=== PATIENT | female | born 1975 | race African-American/Black ===

== ENCOUNTER 2021-05-04 17:16 | Outpatient (CLI) | payer BC, SELFPAY ==
--- NOTE | ~2021-05-04 | MM_ITS ---
EXAMINATION: MM screening [facility] BI w muriel HISTORY: Screening TECHNIQUE: Craniocaudal and mediolateral oblique 3-D tomosynthesis images were obtained and synthetic 2-D images were generated. CAD analysis was submitted and interpreted. COMPARISON: No prior mammogram is available for comparison at this institution. BREAST PARENCHYMAL COMPOSITION: There are scattered areas of fibroglandular density. FINDINGS: There is a mass in the upper outer quadrant of the left breast, middle third. There are no suspicious calcifications, in the right breast to suggest malignancy. IMPRESSION: 1. Left breast mass, upper outer quadrant. 2. Comparison to previous outside mammograms recommended. BI-RADS Category 0: Incomplete: Needs additional imaging evaluation. Reviewed, dictated and finalized at location A.
== END 2021-05-04 17:17 | disposition home or self-care (01) ==
LOC: ANHIMG 17:25
DX: Z12.31 Encounter for screening mammogram for malignant neoplasm of breast (principal); R92.8 Other abnormal and inconclusive findings on diagnostic imaging of breast
CPT/HCPCS: 77063; 77067

== ENCOUNTER 2022-07-13 16:17 | Outpatient (CLI) | payer BC, SELFPAY ==
--- NOTE | ~2022-07-13 | MM_ITS ---
EXAMINATION: MM screening [facility] BI w muriel HISTORY: Screening TECHNIQUE: Craniocaudal and mediolateral oblique 3-D tomosynthesis images were obtained and synthetic 2-D images were generated. CAD analysis was submitted and interpreted. COMPARISON: Comparison to multiple prior studies sequentially, with oldest reviewed study dated 02/2020. BREAST PARENCHYMAL COMPOSITION: Breast composed of scattered areas of fibroglandular density FINDINGS: There is no evidence of suspicious mass, calcification, or architectural distortion to sugg est malignancy in either breast. There has been no suspicious interval change. IMPRESSION: 1. No mammographic evidence of malignancy. 2. Recommend routine screening mammography in one year. BI-RADS Category 1: Negative Reviewed, dictated and finalized at location A.
== END 2022-07-13 16:18 | disposition home or self-care (01) ==
LOC: ANHIMG 16:24
DX: Z12.31 Encounter for screening mammogram for malignant neoplasm of breast (principal)
CPT/HCPCS: 77063; 77067

== ENCOUNTER 2023-07-17 15:25 | Outpatient (CLI) | payer BC, SELFPAY ==
--- NOTE | ~2023-07-17 | MM_ITS ---
EXAMINATION: MM screening [facility] w muriel HISTORY: Screening mammogram TECHNIQUE: Craniocaudal and mediolateral oblique 3-D tomosynthesis images were obtained and synthetic 2-D images were generated. CAD analysis was submitted and interpreted. COMPARISON: 07/13/2022, 05/04/2021 bilateral screening mammogram examinations BREAST PARENCHYMAL COMPOSITION: There are scattered areas of fibroglandular density. FINDINGS: There is no evidence of suspicious mass, calcification, or architectural distortion to sugg est malignancy in either breast. There has been no suspicious interval change. IMPRESSION: 1. No mammographic evidence of malignancy. 2. Recommend routine screening mammography in one year. BI-RADS Category 1: Negative Reviewed, dictated and finalized at location A.
== END 2023-07-17 15:26 | disposition home or self-care (01) ==
LOC: ANHIMG 15:46
DX: Z12.31 Encounter for screening mammogram for malignant neoplasm of breast (principal)
CPT/HCPCS: 77063; 77067

== ENCOUNTER 2024-07-19 15:25 | Outpatient (CLI) | payer BC, SELFPAY ==
--- NOTE | ~2024-07-19 | MM_ITS ---
EXAMINATION: MM screening [facility] w muriel HISTORY: Screening TECHNIQUE: Craniocaudal and mediolateral oblique 3-D tomosynthesis images were obtained and synthetic 2-D images were generated. CAD analysis was submitted and interpreted. COMPARISON: Comparison to multiple prior studies sequentially, with oldest reviewed study dated 02/2020. BREAST PARENCHYMAL COMPOSITION: Not dense: There are scattered areas of fibroglandular density. FINDINGS: There is no evidence of suspicious mass, calcification, or architectural distortion to sugg est malignancy in either breast. There has been no suspicious interval change. IMPRESSION: 1. No mammographic evidence of malignancy. 2. Recommend routine screening mammography in one year. BI-RADS Category 1: Negative Reviewed, dictated and finalized at location B.
== END 2024-07-19 15:26 | disposition home or self-care (01) ==
LOC: ANHIMG 15:28
DX: Z12.31 Encounter for screening mammogram for malignant neoplasm of breast (principal)
CPT/HCPCS: 77063; 77067

== ENCOUNTER 2025-06-02 18:35 | Emergency (ER) | payer BC, SELFPAY ==
--- OUTSIDE RECORDS SUMMARY | 2017-08-25 13:16 | XMS_ITS | Continuity of Care Document ---
Author Organization [facility] Address [address] [place] [address] Phone Care Team Providers Care Fashion Consultant Sales Name Role Phone Jean-Pierre Newton MD Unavailable Unavailable Allergies, Adverse Reactions, Alerts Substance Reaction Status Criticality No Known Allergies Active No Inform ation Medications Medication Instructions Dosage Effective Dates (start - stop) Status Comments [place] 5 mg-325 mg tablet take 1- 2 table ts by oral route every 6 hours as needed for pain - Active OMEPRAZOLE (unknown strength) Not Available - Active VALTREX (unknown strength) Not Available - Active NUVARING (unknown strength) Not Available - Active LORATADINE (unknown strength) Not Available - Active HYDROCHLOROTHIAZIDE (unknown strength) Not Available - Active Procedures Procedure Date POSTOP FOLLOW-UP VISIT POSTOP FOLLOW-UP VISIT OFFICE/OUTPATIENT VISIT EST Advance Directives Directive Yes / No Effective Date File Name No Information Encounters Encounter Description Practice Location Reason(s) For Visit Diagnoses Date Provider Providers Copied on Encounter [facility] , [address], [address], [place] [phone] [facility] No Information 7 Aman [address]. [address], [id number] . tel: [phone] [facility] , [address], [address], [place] [phone] [facility] Trigger finger of right thumb 5 Drea Galvin. [address] [facility] [place], [place], [id number] . tel: [phone] [facility] , [address], [address], tel:[phone] [facility] Trigger finger of right thumb 5 Drea Galvin. [address] [facility], [place], [place], [id number] . tel: [phone] [facility] , [address] [place] [address], [address], tel:[phone] [facility] No Information - 5 Drea Galvin. [address] [facility], [place], [place], [id number] . tel: [phone] [facility] , [address], [address], tel:[phone] [facility] [place] Trigger finger of right thumb 0 5 Drea Galvin. [address] [facility], [place], [place], [id number] . tel: [phone] OFFICE/OUTPAT IENT VISIT EST [facility] , [address] [place] [address], [place], [address], tel:[phone] [facility] Trigger finger (acquired) 5 Drea Galvin. [address] [facility], [place], [place], [id number] . tel: [phone] Referring Provider: Melissa Lopez[address], [place], [address]. tel:[phone] Family History Family Member Type Diagnosis Age At Onset Problem (finding) Family history of strok e Problem (finding) Family history of hyper tension Mother Problem (finding) malignant neoplasm of [place] Problem (finding) Family history of Diabe louann mellitus Problem (finding) Family history of prost ate cancer Payers Payer name Insurance type Covered constitution party ID Authoriza tion(s) Prime E2 [id number] Social History Type Description Quantity Date Captured Comments Sex Female Smoking Status No Information Chief Complaint And Reason For Visit No Information Reason For Referral Reason For Referral No Information History Of Present Illness Encounter Date Complaint History Of Prese nt Illness No Information Functional Status Date Functional Assessmen t No Information Instructions Date Instruction Additional Infor mation Activity as tolerated. Related t o Trigger finger of right thumb Activity as tolerated. Related t o Trigger finger of right thumb Discussed post-operative instruc tions Related to Trigger finger of right thumb Activity as tolerated. Related t o Trigger finger (acquired) Assessments Type Assessment Date No Information Patient Care Teams Name Effective Dates (start - stop) Status Members No Information
--- OUTSIDE RECORDS SUMMARY | 2025-06-02 18:37 | XMS_ITS | Clinical Summary ---
Author Organization [facility] [employer] Address [address] [place] [address] Care Team Providers Care Operations Officer Trust Department Name Role Phone Sri Hester MD Primary Care Provider [phone] Source Comments [facility],non-owned Affiliates and Associated Physician Practices is amultiple site organization consisting of ambulatory clinics and hospital sitesin [place], [place], [place] and [place]. This disclosure is being madepursuant to the Care Everywhere program and may not contain all information available regarding this patient. Last updated 18.[facility] [employer] Allergies Active Allergy Reactions Criticality Noted Date Comments Acetaminophen 08/16/2011 Medications * Be aware that medications may not be up to date on this document. Alwaysverify current medications with the patient. valACYclovir (VALTREX) 1 GM tablet Take 1,000 mg by mouth every 12 hours. Active Etonogestrel-Eth inyl Estradiol (NUVARING VA) Insert into the vagina. Active Family History Medical History Relation Name Comments Cancer Father prostate Relation Name Status Comments Father Social History Tobacco Use Types Packs/Day Years Used Date Smoking Tobacco: Never Alcohol Use Standard Drinks/Week Comments Not Asked 0 (1 standard drink = 0.6 oz pur e alcohol) Comments Unknown Sex and Gender Information Value Date Recorded Sex Assigned at Not on file Legal Sex Female 12:50 PM [employer]ALONE DIVER Gender Identity Not on file Sexual Orientation Not on file Last Filed Vital Signs Vital Sign Reading Time Taken Comments Blood Pressure 120/90 08/16/2011 2:12 PM ABALONE DIVER Pulse 74 08/16/2011 2:12 PM ABALONE DIVER Temperature - - Respiratory Rate - - Oxygen Saturation 98% 08/16/2011 2:12 PM ABALONE DIVER Inhaled Oxygen Concentration - - Weight 98.9 kg (218 lb) 08/16/2011 2:12 PM ABALONE DIVER Height 162.6 cm (5' 4) 08/16/2011 2:12 PM ABALONE DIVER Body Mass Index 37.42 08/16/2011 2:12 PM ABALONE DIVER Plan of Treatment Health Maintenance Due Date Last Done Comments COLOGUARD (AGES 45-75) - COL ON CA SCREENING 1976 COLON MONITORING 1976 COLONOSCOPY - COLON CA SCREENING 1976 CT COLONOGRAPHY - COLON CA SCREENING 1976 Colorectal Cancer Screening 1976 FIT - COLON CA SCREENING 1976 FLEX SIG - COLON CA SCREENING 1976 LIPID TESTING 1976 MAMMOGRAM 1976 HIV SCREENING 1991 HEPATITIS C SCREENING 04/14/1994 DTAP/TDAP/TD VACCINES (1 - Tdap) 1995 HEPATITIS B VACCINE (1 of 3 - 19+ 3-dose series) 1995 DEPRESSION SCREENING 09/25/2024 COVID-19 VACCINE (1 - 2023-2 5 season) 2025 INFLUENZA VACCINE (#1) 2025 ZOSTER VACCINE (1 of 2) 2026 HIB VACCINE Aged Out No longer eligi ble based on patient's age to complete this topic HPV VACCINE Aged Out No longer eligi ble based on patient's age to complete this topic MENINGOCOCCAL (Group B) VACC INE SHARED DECISION-MAKING Aged Out No longer eligibl e based on patient's age to complete this topic MENINGOCOCCAL GROUPS A/C/Y/W VACCINE Aged Out No longer eligible b ased on patient's age to complete this topic Insurance Care Teams Operations Officer Trust Department Relationship Specialty Start Date End Date Sri Hester MD [address] [place] [address] CYNDIE Nichols [id number] PCP - General 08/23/11
--- OUTSIDE RECORDS SUMMARY | 2025-06-02 18:37 | XMS_ITS | Clinical Summary ---
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 Role Phone No, Physician Primary Care Provider [phone] Allergies No known active allergies Medications valACYclovir (VALTREX) 500 mg tablet TAKE 1 TABLET BY MOUTH EVERY DAY 90 tablet 12/30/2019 Active etonogestreL-et hinyl estradioL (NUVARING, ELURYNG) 0.12-0.015 mg/24 hr vaginal ring Insert into the vagina Active cetirizine (ZyrTEC) 10 mg tablet Take 1 tablet (10 mg total) by mouth daily Active montelukast (SINGULAIR) 10 mg tablet Take 1 tablet (10 mg total) by mouth daily 06/30/2018 Active multivitamin-mi g-[id number]-vit K (Bariatric Multivitamins) 45 mg iron- 800 mcg-120 mcg capsule 12/05/2023 Active pimecrolimus (Elidel) 1 % cream PRN Active buPROPion SR (WELLBUTRIN SR) 200 mg 12 hr tabletIndicatio ns:Obesity, class 3 Take 1 tablet (200 mg total) by mouth 2 (two) times a day 180 tablet 1 12/03/2024 Active topiramate (TOPAMAX) 25 mg tabletIndicatio ns:Obesity, class 3 Take 1 tablet (25 mg total) by mouth 3 (three) times a day 90 tablet 3 12/03/2024 Active ergocalciferol (VITAMIN D) 50,000 unit capsule Take 1 capsule (50,000 Units total) by mouth once a week 4 capsule 2 02/14/2025 Active phentermine 15 mg capsuleIndicati ons:Obesity, class 3 Take 1 capsule (15 mg total) by mouth 2 (two) times a day 60 capsule 2 03/31/2025 Active naltrexone (DEPADE) 50 mg tabletIndicatio ns:Obesity, class 3 Take 1 tablet (50 mg total) by mouth daily 90 tablet 1 12/03/2024 06/01/20 25 Active Problems Problem Noted Date Diagnosed Date Vitamin B 12 deficiency 04/15/2025 Assessment & Plan (04/15/2025 3:35 PM CDT): Vitamin B12 level 259 Please add in over the counter strength Vitamin B12 - 2,500 mcg daily. Obesity, class 3 09/30/2024 Assessment & Plan (04/15/2025 3:39 PM CDT): Reviewed most recent labs. Continue low carb, low glycemic diet. Rissa is currently on bupropion/naltrexone and phentermine/topiramate. Continue medication at current dose. Stop phentermine 1 week before surgery and can restart the day after if feeling well Stop naltrexone 1 month before surgery- hold until next visit after surgery Stop wellbutrin and topamax the day before surgery and restart the day afterwards if feeling well increase physical activity, water, and protein (eat protein first, veggies, fruits, starchy veggies, legumes, grains) Increase to 60-80+ fl oz daily Increase protein intake to 70-90g daily Try to increase intentional physical activity and add in some strength training (weights, resistance bands, yoga, pilates) Reviewed importance of adequate protein intake. Reviewed recommendation/goal of >/= 150 minutes/week moderate intensity aerobic exercise. Assessment & Plan (02/11/2025 3:02 PM CDT): Continue low carb, low glycemic diet. Rissa is currently on bupropion/naltrexone and phentermine/topiramate. Continue medication at current dose. May consider increasing phentermine in the future if no continued improvement, would need to watch BP. increase physical activity, water, and protein (eat protein first, veggies, fruits, starchy veggies, legumes, grains) Increase to 60-80+ fl oz daily Increase protein intake to 70-90g daily Try to increase intentional physical activity and add in some strength training (weights, resistance bands, yoga, pilates) Reviewed importance of adequate protein intake. Reviewed recommendation/goal of >/= 150 minutes/week moderate intensity aerobic exercise. Assessment & Plan (12/03/2024 8:17 AM CDT): Obesity is one of the leading risk factor for mortality. Metabolically healthy obese individuals had 49% increased risk of coronary artery disease, 7% increased risk of cerebrovascular disease and 96% increased risk of heart failure. In other words, even individuals who are normal weight can have metabolic abnormalities and similar risk for cardiac vascular disease events. Thus, the complications that may result from metabolic syndrome and frequently serious and chronic. They include atherosclerosis, diabetes, myocardial infarction, renal disease, cardiovascular events such as stroke, nonalcoholic fatty liver disease, peripheral artery disease, and cardiovascular diseases. His diabetes develops; there is an increased risk of retinopathy, neuropathy, renal disease and amputation of labs. Therefore, treating obesity, obesity related diseases is exceedingly crucial. Improving the hypertrophic adipocytes function and decrease insulin resistance is the main goal of the treatment. Furthermore, an emerging concept that the anti-obesity agents must not only reduce the hypertrophic adipocytes but must also correct the fat dysfunction, adiposopathy. Weight loss is associated with increases in mean suppression of glucose production from baseline, is associated with increase insulin stimulated in glucose disposal from fat-free mass and weight loss increased beta cell function. In other words, weight loss change in hepatic insulin sensitivity and muscle insulin sensitivity, beta cell function and a 24-hour plasma glucose and insulin profiles. Our goal is and decreasing the weight between 16 and 20% which will significantly decrease the risk of morbidity and mortality. Assessment & Plan (09/30/2024 8:47 AM FILM COMPOSER): Continue low carb, low glycemic diet. Rissa is currently on bupropion/naltrexone and phentermine/topiramate. Continue medication at current dose. If she continues to have hair loss despite not losing much weight between visits, increasing protein and starting the nutrofol and minoxidil from dermatology, will discuss lowering Topamax dose next visit increase physical activity, water, and protein (eat protein first, veggies, fruits, starchy veggies, legumes, grains) Increase to 60-80+ fl oz daily Increase protein intake to 70-90g daily Try to increase intentional physical activity and add in some strength training Reviewed importance of adequate protein intake. Reviewed recommendation/goal of >/= 150 minutes/week moderate intensity aerobic exercise. BMI 40.0-44.9, adult 09/30/2024 Assessment & Plan (04/15/2025 3:14 PM CDT): Patient's highest BMI was 43.7 ; initial BMI was 30.4; this has improved to 26.93 through medical management Assessment & Plan (02/11/2025 2:38 PM CDT): Patient's highest BMI was 43.7 ; initial BMI was 30.4; this has improved to 26.43 through medical management Assessment & Plan (09/30/2024 8:28 AM FILM COMPOSER): Patient's highest BMI was 43.7 ; initial BMI was 30.4; this has improved to 26.29 through medical management Encounter for exercise counseling 09/30/2024 Assessment & Plan (04/15/2025 11:33 AM CDT): I counseled the patient on exercise: Recommend 36 min. cardio daily. Based on availiable data on the secondary prevention of coronary heart disease, stroke and prediabetes, physical activity is potentially as active as many drug interventions.Jose Antonio Ramirez: BMJ 2013 [id number];06/2013; Diabetes Care, Volume 35, Aug 2012. Reviewed recommendation/goal of >/= 150 minutes/week moderate intensity aerobic exercise. Discussed need for weightbearing exercise in order to promote muscle gain and burning fat. Assessment & Plan (02/11/2025 9:30 AM CDT): I counseled the patient on exercise: Recommend 36 min. cardio daily. Based on availiable data on the secondary prevention of coronary heart disease, stroke and prediabetes, physical activity is potentially as active as many drug interventions.NacJose Antonio mcneil: BM 2012 [id number];06/2013; Diabetes Care, Volume 35, Aug 2012. Reviewed recommendation/goal of >/= 150 minutes/week moderate intensity aerobic exercise. Discussed need for weightbearing exercise in order to promote muscle gain and burning fat. Assessment & Plan (09/30/2024 8:28 AM FILM COMPOSER): I counseled the patient on exercise: Recommend 36 min. cardio daily. Based on availiable data on the secondary prevention of coronary heart disease, stroke and prediabetes, physical activity is potentially as active as many drug interventions.Jose Antonio Ramirez: BM 2012 [id number];06/2013; Diabetes Care, Volume 35, Aug 2012. Reviewed recommendation/goal of >/= 150 minutes/week moderate intensity aerobic exercise. Discussed need for weightbearing exercise in order to promote muscle gain and burning fat. H/O bariatric surgery 09/30/2024 Assessment & Plan (04/15/2025 11:33 AM CDT): S/P sleeve gastrectomy. Reviewed recent labs Pt brunson start taking Calcium citrate 1,200mcg daily with food Assessment & Plan (02/11/2025 9:30 AM CDT): S/P sleeve gastrectomy. Routine labs to evaluate for vitamin deficiencies in setting of intestinal malabsorption. Will recheck labs after PCP appt tomorrow and add on additional lab orders Assessment & Plan (12/03/2024 8:18 AM CDT): Pt has hx of lap band placed at age 39, removed at age 44. She is s/p VSG w/ Dr. Mclaughlin at age 44. Assessment & Plan (09/30/2024 8:43 AM FILM COMPOSER): S/P sleeve gastrectomy. Routine labs to evaluate for vitamin deficiencies in setting of intestinal malabsorption. Will recheck labs after PCP appt tomorrow and add on additional lab orders Encounter for weight loss counseling 04/23/2024 Assessment & Plan (04/15/2025 11:33 AM CDT): Reviewed importance of adequate protein intake. Reviewed recommendation/goal of >/= 150 minutes/week moderate intensity aerobic exercise. Discussed okay to not track food/calories but that if they start to struggle or are not losing weight, this is a useful tool to help refocus. Discussed limiting calorie intake with restaurant options including planning meals prior to ordering, eating only half the meal, and substituting certain items. Assessment & Plan (02/11/2025 9:30 AM CDT): Reviewed importance of adequate protein intake. Reviewed recommendation/goal of >/= 150 minutes/week moderate intensity aerobic exercise. Discussed okay to not track food/calories but that if they start to struggle or are not losing weight, this is a useful tool to help refocus. Discussed limiting calorie intake with restaurant options including planning meals prior to ordering, eating only half the meal, and substituting certain items. Assessment & Plan (12/03/2024 8:17 AM CDT): Relevant weight management chart notes reviewed. I counseled the patient on nutrition: Implementing First Line therapy was discussed. Furthermore, we recommend a diet with a slightly higher high protein content, lower glycemic index with carbohydrate restriction yet without daily energy restriction. This approach will need to a weight loss because of higher satiety sensation. Recommend avoiding food persevered in plastic, eating out or processed food. Avoid eating out and ultraprocessed foods. Recommend fresh/frozen protein and vegetables. Study YES and NO list. I counseled the patient on exercise: Recommend 36 min. cardio daily. Based on availiable data on the secondary prevention of coronary heart disease, stroke and prediabetes, physical activity is potentially as active as many drug interventions.Jose Antonio Ramirez: BMJ 2013 [id number];06/2013; Diabetes Care, Volume 35, Aug 2012. Pharmacotherapy: Reviewed medications; discussed with the patient changes in details, discussed side effects and risks of taking the medications in details with the patient. Patient expressed understanding of the new orders; see attached new treatment and orders. - Topamax 25mg BID - Phentermine 15mg BID - Wellbutrin SR 200mg BID - Bariatric MVI - Naltrexone 50mg - 1/2 tab BID --> has been out, [facility] Assessment & Plan (09/30/2024 8:27 AM FILM COMPOSER): Reviewed importance of adequate protein intake. Reviewed recommendation/goal of >/= 150 minutes/week moderate intensity aerobic exercise. Discussed okay to not track food/calories but that if they start to struggle or are not losing weight, this is a useful tool to help refocus. Discussed limiting calorie intake with restaurant options including planning meals prior to ordering, eating only half the meal, and substituting certain items. Assessment & Plan (07/30/2024 3:00 PM FILM COMPOSER): Reviewed importance of adequate protein intake. Reviewed recommendation/goal of >/= 150 minutes/week moderate intensity aerobic exercise. Discussed okay to not track food/calories but that if they start to struggle or are not losing weight, this is a useful tool to help refocus. Discussed limiting calorie intake with restaurant options including planning meals prior to ordering, eating only half the meal, and substituting certain items. Assessment & Plan (04/23/2024 2:35 PM CDT): Reviewed importance of adequate protein intake. Reviewed recommendation/goal of >/= 150 minutes/week moderate intensity aerobic exercise. Discussed limiting calorie intake with restaurant options including planning meals prior to ordering, eating only half the meal, and substituting certain items. Metabolic syndrome 04/23/2024 Assessment & Plan (04/15/2025 11:33 AM CDT): Obesity is one of the leading risk factor for mortality. Metabolically healthy obese individuals had 49% increased risk of coronary artery disease, 7% increased risk of cerebrovascular disease and 96% increased risk of heart failure. In other words, even individuals who are normal weight can have metabolic abnormalities and similar risk for cardiac vascular disease events. Thus, the complications that may result from metabolic syndrome and frequently serious and chronic. They include atherosclerosis, diabetes, myocardial infarction, renal disease, cardiovascular events such as stroke, nonalcoholic fatty liver disease, peripheral artery disease, and cardiovascular diseases. His diabetes develops; there is an increased risk of retinopathy, neuropathy, renal disease and amputation of limbs. Therefore, treating obesity, obesity related diseases is exceedingly crucial. Improving the hypertrophic adipocytes function and decrease insulin resistance is the main goal of the treatment. Furthermore, an emerging concept that the anti-obesity agents must not only reduce the hypertrophic adipocytes but must also correct the fat dysfunction, adiposopathy. Weight loss is associated with increases in mean suppression of glucose production from baseline, is associated with increase insulin stimulated in glucose disposal from fat-free mass and weight loss increased beta cell function. In other words, weight loss change in hepatic insulin sensitivity and muscle insulin sensitivity, beta cell function and a 24-hour plasma glucose and insulin profiles. Our goal is and decreasing the weight between 16 and 20% which will significantly decrease the risk of morbidity and mortality. Assessment & Plan (02/11/2025 9:30 AM CDT): Obesity is one of the leading risk factor for mortality. Metabolically healthy obese individuals had 49% increased risk of coronary artery disease, 7% increased risk of cerebrovascular disease and 96% increased risk of heart failure. In other words, even individuals who are normal weight can have metabolic abnormalities and similar risk for cardiac vascular disease events. Thus, the complications that may result from metabolic syndrome and frequently serious and chronic. They include atherosclerosis, diabetes, myocardial infarction, renal disease, cardiovascular events such as stroke, nonalcoholic fatty liver disease, peripheral artery disease, and cardiovascular diseases. His diabetes develops; there is an increased risk of retinopathy, neuropathy, renal disease and amputation of limbs. Therefore, treating obesity, obesity related diseases is exceedingly crucial. Improving the hypertrophic adipocytes function and decrease insulin resistance is the main goal of the treatment. Furthermore, an emerging concept that the anti-obesity agents must not only reduce the hypertrophic adipocytes but must also correct the fat dysfunction, adiposopathy. Weight loss is associated with increases in mean suppression of glucose production from baseline, is associated with increase insulin stimulated in glucose disposal from fat-free mass and weight loss increased beta cell function. In other words, weight loss change in hepatic insulin sensitivity and muscle insulin sensitivity, beta cell function and a 24-hour plasma glucose and insulin profiles. Our goal is and decreasing the weight between 16 and 20% which will significantly decrease the risk of morbidity and mortality. Assessment & Plan (09/30/2024 8:27 AM FILM COMPOSER): Obesity is one of the leading risk factor for mortality. Metabolically healthy obese individuals had 49% increased risk of coronary artery disease, 7% increased risk of cerebrovascular disease and 96% increased risk of heart failure. In other words, even individuals who are normal weight can have metabolic abnormalities and similar risk for cardiac vascular disease events. Thus, the complications that may result from metabolic syndrome and frequently serious and chronic. They include atherosclerosis, diabetes, myocardial infarction, renal disease, cardiovascular events such as stroke, nonalcoholic fatty liver disease, peripheral artery disease, and cardiovascular diseases. His diabetes develops; there is an increased risk of retinopathy, neuropathy, renal disease and amputation of labs. Therefore, treating obesity, obesity related diseases is exceedingly crucial. Improving the hypertrophic adipocytes function and decrease insulin resistance is the main goal of the treatment. Furthermore, an emerging concept that the anti-obesity agents must not only reduce the hypertrophic adipocytes but must also correct the fat dysfunction, adiposopathy. Weight loss is associated with increases in mean suppression of glucose production from baseline, is associated with increase insulin stimulated in glucose disposal from fat-free mass and weight loss increased beta cell function. In other words, weight loss change in hepatic insulin sensitivity and muscle insulin sensitivity, beta cell function and a 24-hour plasma glucose and insulin profiles. Our goal is and decreasing the weight between 16 and 20% which will significantly decrease the risk of morbidity and mortality. Assessment & Plan (07/30/2024 3:00 PM FILM COMPOSER): Obesity is one of the leading risk factor for mortality. Metabolically healthy obese individuals had 49% increased risk of coronary artery disease, 7% increased risk of cerebrovascular disease and 96% increased risk of heart failure. In other words, even individuals who are normal weight can have metabolic abnormalities and similar risk for cardiac vascular disease events. Thus, the complications that may result from metabolic syndrome and frequently serious and chronic. They include atherosclerosis, diabetes, myocardial infarction, renal disease, cardiovascular events such as stroke, nonalcoholic fatty liver disease, peripheral artery disease, and cardiovascular diseases. His diabetes develops; there is an increased risk of retinopathy, neuropathy, renal disease and amputation of labs. Therefore, treating obesity, obesity related diseases is exceedingly crucial. Improving the hypertrophic adipocytes function and decrease insulin resistance is the main goal of the treatment. Furthermore, an emerging concept that the anti-obesity agents must not only reduce the hypertrophic adipocytes but must also correct the fat dysfunction, adiposopathy. Weight loss is associated with increases in mean suppression of glucose production from baseline, is associated with increase insulin stimulated in glucose disposal from fat-free mass and weight loss increased beta cell function. In other words, weight loss change in hepatic insulin sensitivity and muscle insulin sensitivity, beta cell function and a 24-hour plasma glucose and insulin profiles. Our goal is and decreasing the weight between 16 and 20% which will significantly decrease the risk of morbidity and mortality. Assessment & Plan (04/23/2024 2:36 PM CDT): Continue low carb, low glycemic diet. Rissa is currently on bupropion/naltrexone and phentermine/topiramate. Increase Topamax- con't 1 tab with each phentermine and add additional tab at 6PM Continue medication at current dose. Reviewed importance of adequate protein intake. Reviewed recommendation/goal of >/= 150 minutes/week moderate intensity aerobic exercise. Discussed limiting calorie intake with restaurant options including planning meals prior to ordering, eating only half the meal, and substituting certain items. increase physical activity, water, and protein (eat protein first, veggies, fruits, starchy veggies, legumes, grains) Pure hypercholesterolemia 09/27/2022 Assessment & Plan (04/15/2025 11:29 AM CDT): Discussed role of diet, exercise and weight loss in improving lipid profile. Increasing physical activity can increase HDL, often referred as good cholesterol which is protective. losing 5-10% body weight can result in reduction of LDL. Assessment & Plan (02/11/2025 9:32 AM CDT): Discussed role of diet, exercise and weight loss in improving lipid profile. Increasing physical activity can increase HDL, often referred as good cholesterol which is protective. losing 5-10% body weight can result in reduction of LDL. Assessment & Plan (09/30/2024 8:26 AM FILM COMPOSER): Discussed role of diet, exercise and weight loss in improving lipid profile. Assessment & Plan (07/30/2024 3:29 PM FILM COMPOSER): Discussed role of diet, exercise and weight loss in improving lipid profile. Assessment & Plan (04/23/2024 2:37 PM CDT): Discussed role of diet, exercise and weight loss in improving lipid profile. Gastric band malfunction 09/21/2020 Allergic rhinitis 07/09/2018 Essential (primary) hypertension 07/09/2018 Assessment & Plan (04/15/2025 3:45 PM CDT): Blood pressure readings reviewed. Reviewed medications, medication side effects discussed, call with any medical questions, monitor her blood pressure on regular basis, record blood pressure readings and heart rate. Call if systolic blood pressure exceeds 130 mmHg. Weight loss will decrease the blood pressure. By decreasing systolic and diastolic blood pressure, antihypertensive medications can be weaned off. Check BP 3-4x/week- If BP >140/90 consistently then reach out to PCP We can also decrease phentermine, naltrexone, and wellbutrin Assessment & Plan (02/11/2025 9:32 AM CDT): Blood pressure readings reviewed. Reviewed medications, medication side effects discussed, call with any medical questions, monitor her blood pressure on regular basis, record blood pressure readings and heart rate. Call if systolic blood pressure exceeds 130 mmHg. Weight loss will decrease the blood pressure. By decreasing systolic and diastolic blood pressure, antihypertensive medications can be weaned off. Assessment & Plan (12/03/2024 8:12 AM CDT): Pt to monitor at home, discussed phentermine and wellbutrin could elevated BP Assessment & Plan (09/30/2024 8:26 AM FILM COMPOSER): Blood pressure readings reviewed. Reviewed medications, medication side effects discussed, call with any medical questions, monitor her blood pressure on regular basis, record blood pressure readings and heart rate. Call if systolic blood pressure exceeds 130 mmHg. Weight loss will decrease the blood pressure. By decreasing systolic and diastolic blood pressure, antihypertensive medications can be weaned off. Assessment & Plan (07/30/2024 3:02 PM FILM COMPOSER): Blood pressure readings reviewed. Reviewed medications, medication side effects discussed, call with any medical questions, monitor her blood pressure on regular basis, record blood pressure readings and heart rate. Call if systolic blood pressure exceeds 130 mmHg. Weight loss will decrease the blood pressure. By decreasing systolic and diastolic blood pressure, antihypertensive medications can be weaned off. Assessment & Plan (04/23/2024 2:37 PM CDT): Blood pressure readings reviewed. Reviewed medications, medication side effects discussed, call with any medical questions, monitor her blood pressure on regular basis, record blood pressure readings and heart rate. Call if systolic blood pressure exceeds 130 mmHg. Weight loss will decrease the blood pressure. By decreasing systolic and diastolic blood pressure, antihypertensive medications can be weaned off. Gastroesophageal reflux dise ase with esophagitis without hemorrhage 07/09/2018 Genital herpes simplex 07/09/2018 Irregular periods 07/09/2018 NASIM on CPAP 07/09/2018 Assessment & Plan (04/15/2025 11:30 AM CDT): Discussed role of weight loss in improving NASIM sx. Discussed the importance of good quality, adequate sleep to manage weight. Discussed good sleep hygiene keeping regular bed time, avoiding watching TV or using electronics ( smart phone ) in bed. Emphasized the importance of wearing the sleep mask ( CPAP or BiPAP ) or using Inspire ( Implantable device ) to treat sleep apnea. Assessment & Plan (02/11/2025 2:33 PM CDT): Discussed role of weight loss in improving NASIM sx. Discussed the importance of good quality, adequate sleep to manage weight. Discussed good sleep hygiene keeping regular bed time, avoiding watching TV or using electronics ( smart phone ) in bed. Emphasized the importance of wearing the sleep mask ( CPAP or BiPAP ) or using Inspire ( Implantable device ) to treat sleep apnea. Assessment & Plan (07/30/2024 3:00 PM FILM COMPOSER): Discussed role of weight loss in improving NASIM sx. Assessment & Plan (04/23/2024 2:36 PM CDT): Encouraged compliance with CPAP Vitamin D deficiency 03/19/2018 Assessment & Plan (04/15/2025 3:34 PM CDT): Vitamin D level 113 Decrease vitamin-D 50,000IU supplementation to once monthly Assessment & Plan (02/11/2025 9:31 AM CDT): Continue vitamin-D replacement Will recheck labs Assessment & Plan (12/03/2024 8:16 AM CDT): On vit d 50.000 international units once weekly Assessment & Plan (09/30/2024 8:42 AM FILM COMPOSER): Continue vitamin-D replacement Will recheck labs after PCP appt tomorrow and add on additional lab orders Resolved Problems Problem Noted Date Diagnosed Date Resolved Date Hx of obesity 07/30/2024 09/30/2024 Assessment & Plan (07/30/2024 3:03 PM FILM COMPOSER): Patient's initial BMI was 30.4; this has improved to 26.29 through medical and lifestyle management Overweight (BMI 25.0-29.9) 04/23/2024 0 09/30/2024 Assessment & Plan (07/30/2024 3:26 PM FILM COMPOSER): Continue low carb, low glycemic diet. Rissa is currently on bupropion/naltrexone and phentermine/topiramate. Continue medication at current dose. If she continues to have hair loss despite not losing much weight between visits, increasing protein and starting the nutrofol and minoxidil from dermatology, will discuss lowering Topamax dose next visit Reviewed importance of adequate protein intake. Reviewed recommendation/goal of >/= 150 minutes/week moderate intensity aerobic exercise. Assessment & Plan (04/23/2024 2:36 PM CDT): Continue low carb, low glycemic diet. Rissa is currently on bupropion/naltrexone and phentermine/topiramate. Increase Topamax- con't 1 tab with each phentermine and add additional tab at 6PM Continue medication at current dose. Reviewed importance of adequate protein intake. Reviewed recommendation/goal of >/= 150 minutes/week moderate intensity aerobic exercise. Discussed limiting calorie intake with restaurant options including planning meals prior to ordering, eating only half the meal, and substituting certain items. increase physical activity, water, and protein (eat protein first, veggies, fruits, starchy veggies, legumes, grains) Encounters Date Type Department Care Team Description 04/15/2025 3:00 PM CDT Office Visit [facility] Metabolic Weight Management [address] [place] [phone] Adelina Lan PA Encounter for weight loss counseling (Primary Dx); Metabolic syndrome; Obesity, class 3; BMI 40.0-44.9, adult (HCC); Encounter for exercise counseling; H/O bariatric surgery; Vitamin D deficiency; Pure hypercholesterolem ia; Essential (primary) hypertension; NASIM on CPAP; Vitamin B 12 deficiency 04/07/[address] [facility] Metabolic Weight Management [address] [place] [address] Kulwant Cervantes CPhT Prior Auth (Phentermine) 03/31/[address] [facility] Endocrinology Metabolism and Lipid [address] [place] [address] [place] [phone] Jil Rosen CPhT Obesity, class 3 03/12/2025 Results Follow-Up [facility] Metabolic Weight Management [address] [place] [phone] Verónica Yee PA Vitamin B6, PTH, Zinc, Additional followed-up results: 5 from Last 3 Months Immunizations Immunization Administration Dates Next Due Hep A / Hep B 01/10/2012, 1,01/17/2011,01/03,12/27/2010 Influenza LAIV (Nasal) 06/16/2014 Influenza, Quadrivalent, Spl it, Preservative Free, Intramuscular 06/16/2020 Influenza, Trivalent, Cell Culture-based MDCK, Preservative Free, Antibiotic Free, Intramuscular 06/11/2022 Influenza, Trivalent, High D ose, Split, Preservative Free, Intramuscular 05/26/2016,09/25/2011 Influenza, Trivalent, IM (MDV) 3,06/02/2021,07/03/2019,07/11,07/05/2017,09/25/2013,09/25/2012 ,07/07/2008 Influenza, Unspecified 05/26/2014 Td, adsorbed 09/25/2011 Tdap 09/28/2022,12/27/2010,09/25/2010 Social History Tobacco Use Types Packs/Day Years Used Date Smoking Tobacco: Never Passive Smoke Exposure: Never Smokeless Tobacco: Never Tobacco Cessation:Counseling Given: Not Answered Comments Unknown Sex and Gender Information Value Date Recorded Sex Assigned at Not on file Legal Sex Female 7:59 AM FILM COMPOSER Gender Identity Female 04/15/2024 8:44 AM CDT Sexual Orientation Straight 04/15/2024 8: 44 AM CDT Obstetrics History Last Filed Vital Signs Vital Sign Reading Time Taken Comments Blood Pressure 138/86 04/15/2025 3:42 PM CDT man ual Pulse 88 04/15/2025 3:10 PM CDT Temperature 36.4 C (97.6 F) 04/15/2025 3:10 PM CDT Respiratory Rate - - Oxygen Saturation 100% 04/15/2025 3:10 PM CDT Inhaled Oxygen Concentration - - Weight 68.9 kg (152 lb) 04/15/2025 3:10 PM CDT Height 160 cm (5' 3) 04/15/2025 3:10 PM CDT Body Mass Index 26.93 04/15/2025 3:10 PM CDT Plan of Treatment Health Maintenance Due Date Last Done Comments Cervical Cancer Screening 1976 Colon Cancer Screening-Colonoscopy 1976 Depression Screening 1976 Hepatitis C Screening 1976 Regular Well Visit/Exam 18-64 1994 Covid-19 Vaccine ( season) 2025 07/05/2024, 09/29/2023, 06/11/2022, Additional history exists Influenza Vaccine (#1) 2025 , 06/04/2024, 06/25/2023, Additional history exists Breast Cancer Screening-Mammogram 04/01/2026 04/01/2025, 04/01/2025, 07/17/2023, Additional history exists DTaP/Tdap/Td Vaccine (5 - Td or Tdap) 09/28/2032 09/28/2022, 09/25/2011, 12/27/2010, Additional history exists Hepatitis B Screening Completed 01/10/2012 , 02/16/2011, 01/17/2011, Additional history exists Pneumococcal vaccine <65 Aged Out No longer eligible based on patient's age to complete this topic Insurance [facility] [employer] Care Teams Painter Decorator Relationship Specialty Start Date End Date No, Physician PCP - General 07/18/19
[2025-06-02 18:38] VITALS: BP 163/106; PULSE 93; RESP 18; TEMP 36.9; O2SAT 100
--- NOTE | 2025-06-02 19:06 | ED.NAVMDI ---
HPI - Nausea/Vomiting/Diarrhea General Chief complaint: Nausea/Vomiting/Diarrhea Stated complaint: vomiting and diarrhea Time Seen by Provider: 06/02/25 18:57 Source: patient Mode of arrival: ambulatory Limitations: no limitations History of Present Illness HPI Narrative: This is a 50 year old female that presents to the ER for viral symptoms. Reports cough, congestion, rhinorrhea. Reports today she developed vomiting and diarrhea. Has not been able to keep anything down. Related Data Allergies Allergy/AdvReac Type Severity Reaction Status Date / Time No Known Allergies Allergy Verified 06/02/25 19:40 Review of Systems Review of Systems: All systems reviewed & are unremarkable except as noted in HPI and below PMFSH Past Medical History Medical History (Updated 06/02/25 @ 23:45 by iSlvia Malagon PA-C) No active medical problems Exam Narrative: GENERAL: Well-appearing, well-nourished, and in no acute distress. HEAD: Normocephalic, atraumatic. EYES: EOMI. ENT: Nares clear, no rhinorrhea or epistaxis. Mucous membranes moist. Oropharynx without tonsillar hypertrophy exudate or other lesions. NECK: Supple. No adenopathy or masses. CHEST: Clear to auscultation. No respiratory distress. No wheezes rales or rhonchi HEART: Regular rate and rhythm. No murmur heard. Normal peripheral pulses. ABDOMEN: Soft, nontender, nondistended, normal active bowel sounds. EXTREMITIES: Normal range of motion. No edema. SKIN: Warm, dry, no rash. NEURO: No focal deficits. Alert and oriented x3. PSYCH: Normal mood and affect Course Course Emergency Course: patient updated on her workup and agrees with plan of care. Tolerating PO challenge Vital Signs Vital signs: Vital Signs Temperature 98.5 F 06/02/25 18:38 Pulse Rate 93 06/02/25 18:38 Respiratory Rate 18 06/02/25 18:38 Blood Pressure 163/106 H 06/02/25 18:38 Pulse Oximetry 100 06/02/25 18:38 Oxygen Delivery Room Air 06/02/25 18:38 Temperature 98.5 F 06/02/25 18:38 Pulse Rate 84 06/02/25 19:54 Respiratory Rate 12 06/02/25 19:54 Blood Pressure 148/100 H 06/02/25 19:54 Pulse Oximetry 100 06/02/25 19:54 Oxygen Delivery Room Air 06/02/25 19:54 MDM - Nausea/Vomiting/Diarrhea MDM Narrative Medical decision making narrative: Patient presents the emergency department for viral symptoms. Reporting cough, congestion, vomiting, diarrhea. She is afebrile and nontoxic appearing. Her vitals are stable. CBC with mild leukocytosis to 12.8. Metabolic panel and lipase without concerning findings. Urine without evidence of infection. Influenza RSV and COVID screens are negative. Patient hydrated, given antiemetics with relief. Tolerating p.o. challenge. She is to follow up with primary provider. She has warnings to return to the ER Differential Diagnosis Differential diagnosis: Likely food poisoning, gastroenteritis, dehydration and other (COVID, influenza) Lab Data Attestation: I reviewed the patient's lab results. 06/02/25 19:24 06/02/25 19:24 Labs: Lab Results 06/02/25 06/02/25 06/02/25 Range/Units 19:14 19:24 21:28 WBC 12.8 H (4.5-10.0) K/mm3 RBC 5.08 (4.2-5.4) M/mm3 Hgb 13.5 (12.0-15.0) g/dL Hct 42.2 (37.0-47.0) % MCV 83.1 (80-100) fl MCH 26.6 (26-34) pg MCHC 32.0 (32-36) g/dl RDW 13.5 (11.5-14.5) % Plt Count 208 (150-375) k/mm3 MPV 9.8 (7.4-10.4) fl Immature Gran % (Auto) 0.3 (0-0.5) % Neut % (Auto) 87.1 H (45.5-73.1) % Lymph % (Auto) 5.9 L (18.3-44.2) % [place] % (Auto) 6.0 (2.6-8.5) % Eos % (Auto) 0.2 (0-4.4) % Baso % (Auto) 0.5 (0.2-1.2) % Lymph # (Auto) 0.75 L (0.9-3.2) K/mm3 [place] # (Auto) 0.8 H (0.1-0.6) K/mm3 Eos # (Auto) 0.0 (0-0.3) K/mm3 Baso # (Auto) 0.1 (0.0-0.1) K/mm3 Abs Immat Gran (auto) 0.04 H (0.00-0.031) K/mm3 Absolute Neuts (auto) 11.2 H (1.3-6.7) K/mm3 Absolute Nucleated RBC 0.000 (0.0-0.012) K/mm3 Nucleated RBC % 0.0 (0.0-0.2) % Sodium 135 L (137-145) mmol/L Potassium 3.5 (3.4-5.0) mmol/L Chloride 105 (98-107) mmol/L Carbon Dioxide 22 (22-30) mmol/L Anion Gap 8 (4-12) mmol/L BUN 7 (7-17) mg/dL Creatinine 0.81 (0.7-1.0) mg/dL Estim Creat Clear Calc 61 ml/min Estimated GFR > 60 (59 - ) Glucose 114 H (65-110) mg/dL Calcium 9.5 (8.4-10.2) mg/dL Total Bilirubin 0.5 (0.2-1.3) mg/dL AST 28 (14-36) U/L ALT 21 (6-35) U/L Alkaline Phosphatase 70 (38-126) U/L NT-Pro-B Natriuret Pep 198 H (19.9-100) pg/mL Total Protein 7.8 (6.3-8.2) g/dL Albumin 4.1 (3.5-5.1) g/dL Lipase 32 (23-300) U/L Urine Color Yellow (Yellow) Urine Appearance Clear (Clear) Urine pH 6.0 (5.0-9.0) Ur Specific [place] 1.014 (1.001-1.035) Urine Protein Negative (Negative) mg/dL Urine Glucose (UA) Negative (Negative) mg/dL Urine Ketones 1+ H (Negative) mg/dL Ur Blood (Man) Negative (Negative) Urine Nitrate Negative (Negative) Urine Bilirubin Negative (Negative) Urine Urobilinogen 0.2 (<2.0) mg/dL Leukocyte Esterase Rfl Negative (Negative) LEXY/UL Urine Test Negative Influenza A (RT-PCR) Negative (Negative) Influenza B (RT-PCR) Negative (Negative) RSV (RT-PCR) Negative (Negative) SARS-CoV-2 RNA (RT-PCR) Negative (Negative) Critical Care Time Critical Care Time Critical Care Time: No Discharge Plan Discharge Clinical Impression: Acute viral syndrome Patient Disposition: Home Condition: Improved Instructions: Viral Syndrome (ED) Additional Instructions: Return to the ER if you experience fever, abdominal pain with nausea and vomiting, you are unable to keep down liquids or solids, blood in the stool, pain or burning with urination, blood in the urine or any other symptoms that are concerning to you Small, frequent meals. [place] diet. Remain well hydrated. Ondansetron as needed for nausea Follow up with primary care doctor Patient Language: Portuguese Prescriptions: New ondansetron 4 mg tablet,disintegrating 4 mg PO Q8H PRN (Reason: nausea and vomiting) Qty: 14 0RF Follow-up/Referrals: UNKNOWN,DOCTOR [Non-Staff]
[2025-06-02 19:31] LABS: Hematocrit 42.2 % (37.0-47.0); Hemoglobin 13.5 g/dL (12.0-15.0); Immature Granulocyte Percent A 0.3 % (0-0.5); Lymphocytes Absolute Auto 0.75 K/mm3 (0.9-3.2); Mean Corpuscular HGB Conc 32.0 g/dl (32-36); Mean Corpuscular Hemoglobin 26.6 pg (26-34); Mean Corpuscular Volume 83.1 fl (80-100); Nucleated Red Blood Cells Absolute Auto 0.000 K/mm3 (0.0-0.012); Nucleated Red Blood Cells Perc 0.0 % (0.0-0.2); Platelet Count Result 208 k/mm3 (150-375); Red Blood Count 5.08 M/mm3 (4.2-5.4); White Blood Count 12.8 K/mm3 (4.5-10.0)
[2025-06-02 19:44] LABS: Alanine Aminotransferase 21 U/L (6-35); Albumin Level 4.1 g/dL (3.5-5.1); Alkaline Phosphatase 70 U/L (38-126); Anion Gap 8 mmol/L (4-12); Aspartate Amino Transferase 28 U/L (14-36); Bilirubin,Total 0.5 mg/dL (0.2-1.3); Blood Urea Nitrogen 7 mg/dL (7-17); Calcium 9.5 mg/dL (8.4-10.2); Carbon Dioxide 22 mmol/L (22-30); Chloride 105 mmol/L (98-107); Estimated CRCL calculation 61 ml/min; Estimated Glomerular Filt Rate > 60; Glucose 114 mg/dL (65-110); Lipase 32 U/L (23-300); Potassium 3.5 mmol/L (3.4-5.0); Sodium 135 mmol/L (137-145); Total Protein 7.8 g/dL (6.3-8.2)
[2025-06-02] MEDS: SODIUM CHLORIDE 0.9% IV 1,000 ML 999 ML IV CONT (19:44)
[2025-06-02] MEDS: ONDANSETRON INJ 4 MG/2 ML VIAL IV PUSH (19:45)
[2025-06-02] MEDS: FAMOTIDINE 20 MG/2 ML VIAL IV PUSH (19:45)
[2025-06-02 19:54] VITALS: BP 148/100; PULSE 84; RESP 12; O2SAT 100
[2025-06-02 20:01] LABS: NT Pro B Type Natriuretic Pept 198 pg/mL (19.9-100)
[2025-06-02 20:07] LABS: Influenza A QL RT-PCR Negative (Negative); Influenza B QL RT-PCR Negative (Negative); RSV RNA, RT-PCR Negative (Negative); SARS-CoV-2 RNA PCR Negative (Negative)
[2025-06-02 21:34] LABS: Add Urine Microscopic? NO; Appearance Urine Clear (Clear); Glucose Urine UA Negative (Negative); Leukocyte Esterase Ur Negative LEU/UL (Negative); Nitrate Urine Negative (Negative); Specific Grav Ur 1.014 (1.001-1.035)
[2025-06-02] MEDS: LACTATED RINGERS 1,000 ML 999 ML IV CONT (22:09)
[2025-06-02 22:49] LABS: Pregnancy On Board Control Positive
[2025-06-02 22:54] VITALS: BP 150/95; PULSE 88; RESP 17; O2SAT 100
[2025-06-02] MEDS: METOCLOPRAMIDE HCL INJ 10 MG/2 ML VIAL IV PUSH (23:25)
[2025-06-02 23:38] VITALS: BP 145/104; PULSE 90; RESP 16; O2SAT 100
== END 2025-06-03 00:09 | disposition home or self-care (01) ==
PROVIDERS: Emergency Provider Physician Assistant
DX: B34.9 Viral infection, unspecified (principal); Z20.822 Contact with and (suspected) exposure to COVID-19
CPT/HCPCS: 36415; 80053; 81003; 81025; 83690; 83880; 85025; 87637; 96361; 96374; 96375; 99284; J1200; J2405; J2765; J7030; J7120